=== PATIENT | male | born 1965 | race African-American/Black ===

== ENCOUNTER 2023-12-03 09:58 | Emergency (ER) | payer BC, OTHER ==
[~2023-12-03] VITALS: Ht 185.4 cm; Wt 105.0 kg
[2023-12-03 11:21] VITALS: BP 187/113; PULSE 72; RESP 17; TEMP 97.8; O2SAT 98
[2023-12-03] MEDS ORDERED: CEPH500C PO (13:43)
== END 2023-12-03 13:43 | disposition home or self-care (01) ==
LOC: ER 09:58
DX: L72.3 Sebaceous cyst (principal)
CPT/HCPCS: 10060